=== PATIENT | female | born 1935 | race Caucasian/White ===

== ENCOUNTER 2018-12-04 12:32 | Emergency (ER) | payer OTHER ==
--- OUTSIDE RECORDS SUMMARY | 2018-12-04 12:35 | XMS REPORT ---
:1935 [facility] Address [address] [place] [address] Care Team Providers Name Role Phone Unavailable Unavailable Unavailable Problems This patient has no known problems. Allergies, Adverse Reactions, Alerts This patient has no known allergies or adverse reactions. Medications This patient has no known medications.
--- OUTSIDE RECORDS SUMMARY | 2018-12-04 12:35 | XMS REPORT | Clinical Summary ---
:1935 Author Organization [facility] Address [address] [place] [address] Care Team Providers Name Role Phone Yanci Pagan MD Primary Care Provider Allergies Active Allergy Reactions Severity Noted Date Comments Codeine 08/21/2016 Other 08/21/2016 Contrast Dye Penicillins 08/21/2016 Medications Medication Sig Dispensed Refills Start Date End Date Status cyanocobalamin 1,000 Inject 1,000 mcg 0 Active mcg/mL injection into the shoulder, thigh, or buttocks once. pregabalin (LYRICA) 50 Take 50 mg by 0 Active MG capsule mouth 2 (two) times a day. metFORMIN (GLUCOPHAGE) Take 500 mg by 0 Active 500 mg tablet mouth 2 (two) times a day with meals. magnesium oxide Take 400 mg by 0 Active (MAG-OX) 400 mg tablet mouth 2 (two) times a day. potassium chloride Take 10 mEq by 0 Active (K-DUR,KLOR-CON) 10 MEQ mouth daily. CR tablet memantine 28 mg Take 28 capsules 0 Active capsule,sprinkle,ER by mouth daily. 24hr atorvastatin (LIPITOR) Take 20 mg by 0 Active 20 MG tablet mouth daily. furosemide (LASIX) 40 Take 40 mg by 0 Active mg tablet mouth daily. glipiZIDE (GLUCOTROL) Take 10 mg by 0 Active 10 MG tablet mouth 2 (two) times a day before meals. levothyroxine Take 112 mcg by 0 Active (SYNTHROID, LEVOXYL) mouth every 112 mcg tablet morning. oxyCODone (ROXICODONE) Take 15 mg by 0 Active 15 MG immediate release mouth every 4 tablet (four) hours as needed for moderate pain. pantoprazole (PROTONIX) Take 40 mg by 0 Active 40 MG EC tablet mouth daily. raloxifene (EVISTA) 60 Take 60 mg by 0 Active mg tablet mouth daily. ramipril (ALTACE) 10 MG Take 10 mg by 0 Active capsule mouth daily. PHYTOSTEROL/OM-3/DHA/EP Take by mouth. 0 Active A/FISH (VAYAROL ORAL) venlafaxine XR Take 150 mg by 0 Active (EFFEXOR-XR) 150 MG 24 mouth daily. hr capsule cyanocobalamin, vitamin Place 2,500 mcg 0 Active B-12, 5,000 mcg tablet, under the tongue sublingual daily. cetirizine (ZyrTEC) 10 Take 10 mg by 0 Active MG tablet mouth daily. donepezil (ARICEPT) 23 Take 1 tablet (23 90 tablet 3 11/25/2016 Active mg tablet mg total) by mouth daily. Active Problems Problem Noted Date Alzheimer disease 08/21/2016 Overview: Memory problems Encounters Date Type Specialty Care Team Description 02/11/2018 Refill Neurology Tom Montenegro Jr., MD 02/08/2018 Refill Neurology Tom Montenegro Jr., MD after 12/03/2017 Family History Relation Name Status Comments Father Mother Social History Tobacco Use Types Packs/Day Years Used Date Never Smoker Tobacco Cessation: Counseling Given: No Alcohol Use Drinks/Week oz/Week Comments No Sex Assigned at Date Recorded Not on file Job Start Date Occupation Industry Not on file Not on file Not on file Travel History Travel Start Travel End No recent travel history available. Last Filed Vital Signs Not on file Plan of Treatment Health Maintenance Due Date Last Done Comments SHINGLES VACCINES (1 of 2) 1983 PNEUMOCOCCAL POLYSACCHARIDE VACCINE AGE 65 AND OVER 1998 PNEUMOCOCCAL-13 1998 INFLUENZA VACCINE 06/09/2018 Results Not on fileafter 12/03/2017 Insurance Payer Benefit Plan / Group Subscriber ID Type Phone Address [employer] MEDICARE HU[employer]NA MEDICARE PPO/PFFS/[facility] xxxxxxxxx PPO Advance Directives Patient has advance care planning documents on file. For more information, please contact:Umang Diaz[address] [place] [address]
[2018-12-04 13:01] LABS: Absolute Lymphocytes (CBC) 1.6 K/uL (0.7-4.9); Absolute Monocytes 0.9 K/uL (0.1-1.3); Absolute Neutrophil 4.5 K/uL (1.8-8.0); Eosinophils % 7.3 % (0-4.4); Hematocrit 37.2 % (36.0-45.0); Lymphocytes % 20.5 % (15.3-44.8); MPV 9.4 fL (7.6-11.3); Monocytes % 11.2 % (3.3-12.3); RBC Red Blood Cell Count 4.55 M/uL (3.86-4.86)
[2018-12-04 13:20] LABS: ALT/SGPT 14 U/L (12-78); AST/SGOT 13 U/L (15-37); Alkaline Phosphatase 62 U/L (45-117); BUN Blood Urea Nitrogen 18 mg/dL (7-18); Bicarbonate 30 mmol/L (21-32); Bilirubin Direct < 0.1 mg/dL (0-0.2); Bilirubin Total 0.3 mg/dL (0.2-1.0); Glucose Level 107 mg/dL (74-106); NT PRO-BNP 201 pg/mL (<450); Potassium 3.8 mmol/L (3.5-5.1); Protein, Total 6.3 g/dL (6.4-8.2); Sodium Level 145 mmol/L (136-145); Troponin (Emerg Dept Use Only) < 0.02 ng/mL (0.0-0.045)
--- NOTE | 2018-12-04 15:35 | EDPHYS ---
Physician Documentation [facility] Name: Sandra Donahue Age: 83 yrs Sex: Female : 1935 Arrival Date: 12/04/2018 Time: 12:35 Bed 4 Private MD: ED Physician Mumtaz Galeas HPI: 12/04 15:04 This 83 yrs old Female presents to ER via EMS with complaints of Chest Pain. rn 15:04 The patient or guardian reports chest pain that is located primarily in the anterior rn chest wall, left. Onset: at an unknown time. The pain does not radiate. Duration: The patient or guardian reports a single episode, that is now resolved. Severity of pain:. The patient has not experienced similar symptoms in the past. EMS reports had chest pain, left sided, non-radiating, worse when daughter touched chest. Patient currently denies chest pain/sob, is asymptomatic at this moment. . Historical: - Allergies: 12:50 Ciprofloxacin; aj1 12:50 Codeine; aj1 12:50 Enalapril; aj1 12:50 Iodine; aj1 12:50 PENICILLINS; aj1 - Home Meds: 12:50 donepezil 23 mg Oral tab 1 tab twice a day [Active]; Lyrica 50mg Oral 2 times per day aj1 [Active]; metformin 500 mg Oral tab 1 tab 2 times per day [Active]; Namenda XR 28 mg Oral CSpX 1 cap once daily [Active]; Vitamin D3 2,000 unit Oral cap daily [Active]; vitamin E 2000 units Oral cap once daily [Active]; atorvastatin 20 mg Oral tab 1 tab once daily [Active]; vitamin Z38-ktkzy acid Oral once daily [Active]; glipizide 5 mg oral tab 1 tab once daily [Active]; Januvia 100 mg oral tab 1 tab once daily [Active]; levothyroxine 112 mcg tab 1 tab once daily [Active]; oxybutynin chloride 15 mg Oral tr24 1 tab once daily [Active]; pantoprazole 40 mg Oral TbEC 1 tab once daily [Active]; Probiotic 15 billion cell Oral cpSP daily [Active]; raloxifene 60 mg Oral tab 1 tab once daily [Active]; venlafaxine 150 mg Oral cp24 1 cap once daily [Active]; Zyrtec 10 mg Oral tab 1 tab once daily [Active]; - PMHx: 12:50 Alzheimers; Anxiety; Dementia; Depression; Diabetes - NIDDM; Heart valve disease; aj1 Hypertension; Hypothyroidism; Irregular heart rate; Left torn rotator cuff; osteoarthritis; Osteoporosis; - Immunization history:: Flu vaccine is up to date. - Social history:: Smoking status: Patient/guardian denies using tobacco. - Ebola Screening: : Patient denies travel to an Ebola-affected area in the 21 days before illness onset. - Family history:: not pertinent. - Hospitalizations: : No recent hospitalization is reported. ROS: 15:04 Constitutional: Negative for fever, chills, and weight loss, Eyes: Negative for injury, rn pain, redness, and discharge, Neck: Negative for injury, pain, and swelling, Cardiovascular: Negative for chest pain, palpitations, and edema, Respiratory: Negative for shortness of breath, cough, wheezing, and pleuritic chest pain, Abdomen/GI: Negative for abdominal pain, nausea, vomiting, diarrhea, and constipation, MS/Extremity: Negative for injury and deformity, Skin: Negative for injury, rash, and discoloration, Neuro: Negative for headache, weakness, numbness, tingling, and seizure. Exam: 15:04 Constitutional: This is a well developed, well nourished patient who is awake, alert, rn and in no acute distress. Head/Face: Normocephalic, atraumatic. Cardiovascular: Regular rate and rhythm. No pulse deficits. Respiratory: Lungs have equal breath sounds bilaterally, clear to auscultation Abdomen/GI: Soft, non-tender Skin: Warm, dry MS/ Extremity: Pulses equal, no cyanosis. Neurovascular intact. Full, normal range of motion. Equal circumference. Neuro: Awake and alert, GCS 15, oriented to person, place, time, and situation. Cranial nerves II-XII grossly intact. Motor strength 5/5 in all extremities. Sensory grossly intact. Vital Signs: 12:50 BP 135 / 64; Pulse 59; Resp 16; Temp 97.5; Pulse Ox 97% on R/A; Weight 75.3 kg (R); aj1 Height 5 ft. 3 in. (160.02 cm) (R); Pain 0/10; 13:58 BP 123 / 68; Pulse 61; Resp 14; Pulse Ox 100% on R/A; aj1 15:05 BP 126 / 82; Pulse 97; Resp 18; Pulse Ox 97% on R/A; [facility] 16:09 BP 127 / 72; Pulse 65; Resp 18; Pulse Ox 99% on R/A; [facility] 12:50 Body Mass Index 29.41 (75.30 kg, 160.02 cm) [facility] MDM: 12:35 Patient medically screened. rn 15:32 Differential diagnosis: chest wall pain, gastroesophageal reflux disease (GERD), rn pleurisy, pneumonia, pneumothorax, early zoster, MSK pain. Data reviewed: vital signs, nurses notes, lab test result(s), EKG, radiologic studies, plain films, and as a result, I will discharge patient. Counseling: I had a detailed discussion with the patient and/or guardian regarding: the historical points, exam findings, and any diagnostic results supporting the discharge/admit diagnosis, lab results, radiology results, the need for outpatient follow up, to return to the emergency department if symptoms worsen or persist or if there are any questions or concerns that arise at home. Response to treatment: the patient's condition has returned to base line, the patient is now symptom free, and as a result, I will discharge patient. Special discussion: I discussed with the patient/guardian in detail that at this point there is no indication for admission to the hospital. It is understood, however, that if the symptoms persist or worsen the patient needs to return immediately for re-evaluation. 15:35 ED course: Pt still denies any symptoms and does not recall having chest pain/sob. . rn 12/04 12:36 Order name: Basic Metabolic Panel rn 12/04 12:36 Order name: CBC with Diff; Complete Time: 14:45 rn 12/04 12:36 Order name: LFT's; Complete Time: 14:45 rn 12/04 12:36 Order name: NT PRO-BNP; Complete Time: 14:45 rn 12/04 12:36 Order name: Troponin (emerg Dept Use Only); Complete Time: 14:45 rn 12/04 12:36 Order name: Basic Metabolic Panel; Complete Time: 14:45 EDMS 12/04 12:36 Order name: XRAY Chest (1 view); Complete Time: 15:47 rn 12/04 12:36 Order name: EKG; Complete Time: 12:37 rn 12/04 12:36 Order name: Cardiac monitoring; Complete Time: 12:59 rn 12/04 12:36 Order name: EKG - Nurse/Tech; Complete Time: 12:39 rn 12/04 12:36 Order name: IV Saline Lock; Complete Time: 12:59 rn 12/04 12:36 Order name: Labs collected and sent; Complete Time: 12:51 rn 12/04 12:36 Order name: O2 Per Protocol; Complete Time: 12:59 rn 12/04 12:36 Order name: O2 Sat Monitoring; Complete Time: 12:59 rn Administered Medications: No medications were administered Disposition: 12/04/18 15:34 Discharged to Home. Impression: Chest pain, unspecified, Dyspnea, unspecified. - Condition is Stable. - Discharge Instructions: Nonspecific Chest Pain. - Medication Reconciliation Form, Thank You Letter, Antibiotic Education, Prescription Opioid Use form. - Follow up: Private Physician; When: As needed; Reason: Recheck today's complaints, Re-evaluation by your physician. - Problem is new. - Symptoms have improved. Signatures: Dispatcher [employer] EDKiki Crowley RN RN aj1 Mumtaz Galeas MD MD financial intern: (The following items were deleted from the chart) 16:14 15:34 12/04/2018 15:34 Discharged to Home. Impression: Chest pain, unspecified; aj1 Dyspnea, unspecified. Condition is Stable. Forms are Medication Reconciliation Form, Thank You Letter, Antibiotic Education, Prescription Opioid Use. Follow up: Private Physician; When: As needed; Reason: Recheck today's complaints, Re-evaluation by your physician. Problem is new. Symptoms have improved. rn
--- NOTE | 2018-12-04 15:35 | ER ---
Nurse's Notes [facility] Name: Sandra Donahue Age: 83 yrs Sex: Female : 1935 Arrival Date: 12/04/2018 Time: 12:35 Bed 4 Private MD: Diagnosis: Chest pain, unspecified;Dyspnea, unspecified Presentation: 12/04 12:43 Presenting complaint: EMS states: She woke up at about 11:30 today and told her aj1 granddaughter that she was feeling pressure on the left side of her chest that radiates to the LUQ and left arm. Patient is confused, oriented to person only, denies pain at this time. Patient was given 324mg ASA en route, and 20 gauge IV was started to the left AC. Transition of care: patient was not received from another setting of care. Onset of symptoms was December 04, 2018 at 11:30. Risk Assessment: Do you want to hurt yourself or someone else? Patient reports no desire to harm self or others. Initial Sepsis Screen: Does the patient meet any 2 criteria? No. Patient's initial sepsis screen is negative. Does the patient have a suspected source of infection? No. Patient's initial sepsis screen is negative. Care prior to arrival: None. 12:43 Method Of Arrival: EMS: [facility] aj1 12:43 Acuity: AYAKA 3 aj1 Triage Assessment: 12:50 General: Appears in no apparent distress. comfortable, Behavior is calm, cooperative, aj1 appropriate for age. Pain: Denies pain. Cardiovascular: Heart tones S1 S2 present Patient's skin is warm and dry. Historical: - Allergies: 12:50 Ciprofloxacin; aj1 12:50 Codeine; aj1 12:50 Enalapril; aj1 12:50 Iodine; aj1 12:50 PENICILLINS; aj1 - Home Meds: 12:50 donepezil 23 mg Oral tab 1 tab twice a day [Active]; Lyrica 50mg Oral 2 times per day aj1 [Active]; metformin 500 mg Oral tab 1 tab 2 times per day [Active]; Namenda XR 28 mg Oral CSpX 1 cap once daily [Active]; Vitamin D3 2,000 unit Oral cap daily [Active]; vitamin E 2000 units Oral cap once daily [Active]; atorvastatin 20 mg Oral tab 1 tab once daily [Active]; vitamin X56-trhrr acid Oral once daily [Active]; glipizide 5 mg oral tab 1 tab once daily [Active]; Januvia 100 mg oral tab 1 tab once daily [Active]; levothyroxine 112 mcg tab 1 tab once daily [Active]; oxybutynin chloride 15 mg Oral tr24 1 tab once daily [Active]; pantoprazole 40 mg Oral TbEC 1 tab once daily [Active]; Probiotic 15 billion cell Oral cpSP daily [Active]; raloxifene 60 mg Oral tab 1 tab once daily [Active]; venlafaxine 150 mg Oral cp24 1 cap once daily [Active]; Zyrtec 10 mg Oral tab 1 tab once daily [Active]; - PMHx: 12:50 Alzheimers; Anxiety; Dementia; Depression; Diabetes - NIDDM; Heart valve disease; aj1 Hypertension; Hypothyroidism; Irregular heart rate; Left torn rotator cuff; osteoarthritis; Osteoporosis; - Immunization history:: Flu vaccine is up to date. - Social history:: Smoking status: Patient/guardian denies using tobacco. - Ebola Screening: : Patient denies travel to an Ebola-affected area in the 21 days before illness onset. - Family history:: not pertinent. - Hospitalizations: : No recent hospitalization is reported. Screenin:55 Abuse screen: Denies threats or abuse. Denies injuries from another. Nutritional aj1 screening: No deficits noted. Tuberculosis screening: No symptoms or risk factors identified. 16:10 Fall Risk No fall in past 12 months (0 pts). Secondary diagnosis (15 points) dementia, aj1 No IV (0 pts). Ambulatory Aid- None/Bed Rest/Nurse Assist (0 pts). Gait- Impaired (20 pts.). Mental Status- Overestimates/Forgets Limitations (15 pts.). Total Argueta Fall Scale indicates High Risk Score (45 or more points). As available patient and family educated on Fall Prevention Program and Strategies. Assessment: 12:55 General: Appears in no apparent distress. comfortable, Behavior is calm, cooperative, aj1 appropriate for age. Pain: Denies pain. Neuro: Level of Consciousness is awake, alert, obeys commands. Cardiovascular: Denies chest pain, palpitations, shortness of breath, vomiting, Patient's granddaughter states that the patient was complaining of chest pain and pressure at home Heart tones S1 S2 Patient's skin is warm and dry. Respiratory: Airway is patent Respiratory effort is even, unlabored, Respiratory pattern is regular, symmetrical. GI: No signs and/or symptoms were reported involving the gastrointestinal system. : No signs and/or symptoms were reported regarding the genitourinary system. EENT: No signs and/or symptoms were reported regarding the EENT system. Derm: No signs and/or symptoms reported regarding the dermatologic system. Skin is pink, warm \T\ dry. normal. Musculoskeletal: No signs and/or symptoms reported regarding the musculoskeletal system. Circulation, motion, and sensation intact. 13:58 Reassessment: Patient appears in no apparent distress at this time. No changes from [facility] previously documented assessment. Patient and/or family updated on plan of care and expected duration. Pain level reassessed. Patient is alert, oriented x 3, equal unlabored respirations, skin warm/dry/pink. 15:05 Reassessment: Patient appears in no apparent distress at this time. No changes from aj1 previously documented assessment. Patient and/or family updated on plan of care and expected duration. Pain level reassessed. Patient is alert, oriented x 3, equal unlabored respirations, skin warm/dry/pink. 16:09 Reassessment: Patient appears in no apparent distress at this time. No changes from [facility] previously documented assessment. Patient and/or family updated on plan of care and expected duration. Pain level reassessed. Patient is alert, oriented x 3, equal unlabored respirations, skin warm/dry/pink. Vital Signs: 12:50 BP 135 / 64; Pulse 59; Resp 16; Temp 97.5; Pulse Ox 97% on R/A; Weight 75.3 kg (R); aj1 Height 5 ft. 3 in. (160.02 cm) (R); Pain 0/10; 13:58 BP 123 / 68; Pulse 61; Resp 14; Pulse Ox 100% on R/A; aj1 15:05 BP 126 / 82; Pulse 97; Resp 18; Pulse Ox 97% on R/A; aj1 16:09 BP 127 / 72; Pulse 65; Resp 18; Pulse Ox 99% on R/A; aj1 12:50 Body Mass Index 29.41 (75.30 kg, 160.02 cm) [facility] ED Course: 12:35 Patient arrived in ED. rn 12:35 Mumtaz Galeas MD is Attending Physician. rn 12:39 EKG done, by ED staff, reviewed by Mumtaz Galeas MD. em1 12:42 Kiki Crisostomo RN is Primary Nurse. aj1 12:45 Triage completed. aj1 12:50 Arm band placed on. aj1 12:51 Initial lab(s) drawn, by me, sent to lab. em1 12:55 No provider procedures requiring assistance completed. Maintain EMS IV. Dressing aj1 intact. Good blood return noted. Site clean \T\ dry. Gauge \T\ site: 20 gauge to left AC. Patient maintains SpO2 saturation greater than 95% on room air. 12:55 Patient has correct armband on for positive identification. Bed in low position. Call aj1 light in reach. Side rails up X 1. athletic monitor on. Pulse ox on. NIBP on. 13:14 X-ray completed. Portable x-ray completed in exam room. Patient tolerated procedure sg4 well. 13:15 XRAY Chest (1 view) In Process Unspecified. EDMS 16:10 IV discontinued, intact, bleeding controlled, No redness/swelling at site. Pressure aj1 dressing applied. Administered Medications: No medications were administered Outcome: 15:34 Discharge ordered by . rn 16:14 Discharged to home via wheelchair, with family. aj1 16:14 Condition: good 16:14 Discharge instructions given to family, Instructed on discharge instructions, follow up and referral plans. Demonstrated understanding of instructions, follow-up care. 16:14 Patient left the ED. aj1 Signatures: Dispatcher [employer] EDMS Kiki Crisostomo, ANAHI RN Mumtaz Jaffe MD MD rn Martinez, Eric em1 Sandra Bone sg4
--- NOTE | 2018-12-04 15:39 | RAD REPORT ---
EXAM DESCRIPTION: RAD - Chest Single View - 12/04/2018 1:15 pm CLINICAL HISTORY: Chest pain COMPARISON: January 2018 TECHNIQUE: AP portable chest image was obtained 1312 hours . FINDINGS: Interstitial markings are prominent but not clearly different. No focal mass, consolidatio n or failure. Heart and vasculature are normal. No measurable pleural effusion and no pneumothorax. N o acute bony abnormality seen. No acute aortic findings suspected. IMPRESSION: Chronic interstitial lung disease. No acute findings seen.
--- NOTE | 2018-12-05 07:07 | EKG ---
Test Date: 2018-12-04 Test Time: 12:33:33 Board Certified Orthodontist: GRISEL MEASUREMENT RESULTS: Intervals: Rate: 57 NJ: 184 QRSD: 124 QT: 454 QTc: 441 [place]: P: 51 NJ: 184 QRS: -64 T: 50 INTERPRETIVE STATEMENTS: Sinus bradycardia with sinus arrhythmia Right bundle branch block Left anterior fascicular block Bifascicular block Minimal voltage criteria for LVH, may be normal variant Possible Lateral infarct, age undetermined Abnormal ECG Compared to ECG 01/26/2018 21:10:42 Left ventricular hypertrophy now present Myocardial infarct finding now present Sinus rhythm no longer present Bifascicular block still present Electronically Signed On 12-05-18 07:04:59 CLOTHES MODEL by Jack Luz
== END 2018-12-04 16:14 | disposition home or self-care (01) ==
LOC: ER 12:32
DX: R07.9 Chest pain, unspecified (principal); R06.00 Dyspnea, unspecified; I10 Essential (primary) hypertension; E11.9 Type 2 diabetes mellitus without complications; E03.9 Hypothyroidism, unspecified; G30.9 Alzheimer's disease, unspecified; F02.80 Dementia in other diseases classified elsewhere, unspecified severity, without behavioral disturbance, psychotic disturbance, mood disturbance, and anxiety; F32.9 Major depressive disorder, single episode, unspecified; Z88.0 Allergy status to penicillin; Z88.1 Allergy status to other antibiotic agents; Z88.5 Allergy status to narcotic agent; Z91.048 Other nonmedicinal substance allergy status
CPT/HCPCS: 36415; 71045; 80048; 80076; 83880; 84484; 85025; 93005; 99285

== ENCOUNTER 2019-09-24 18:33 | Emergency (ER) | payer OTHER ==
--- OUTSIDE RECORDS SUMMARY | 2019-09-24 18:35 | XMS REPORT ---
:1935 [facility] Address [address] [place] [address] Care Team Providers Name Role Phone Unavailable Unavailable Unavailable Problems This patient has no known problems. Allergies, Adverse Reactions, Alerts This patient has no known allergies or adverse reactions. Medications This patient has no known medications.
--- NOTE | 2019-09-24 19:26 | RAD REPORT ---
EXAM DESCRIPTION: CT - [id number] - 09/24/2019 7:09 pm CLINICAL HISTORY: Trauma, head and neck injury. PAIN COMPARISON: Chest Pa And Lat (2 Views) dated 09/01/2019; Chest Single View dated 05/16/2019CT HEAD CSP INE MPR WO CONTRAST dated 09/17/2015 TECHNIQUE: Axial 5 mm thick images of the head were obtained. Axial 2 mm thick images of the cervical spine were obtained with sagittal and coronal reconstruction images generated and reviewed. All CT scans are performed using dose optimization technique as appropriate and may include automated exposure control or mA/KV adjustment according to patient size. FINDINGS: CT HEAD WITHOUT CONTRAST: No acute hemorrhage, hydrocephalus or extra-axial collection is identified.Moderate generalized brain atrophy is present with moderate periventricular and deep white matter chronic microvascular ischemi c changes.No areas of brain edema or midline shift. The paranasal sinuses and mastoids are clear.The calvarium is intact. Right frontal scalp hematoma. CT CERVICAL SPINE WITHOUT CONTRAST: No fracture or subluxation.Moderate mid and lower cervical degenerative changes.No prevertebral soft tissues swelling is identified. IMPRESSION: No acute intracranial or cervical spine findings. Moderate mid and lower cervical degenerative changes.
--- NOTE | 2019-09-24 19:33 | ER ---
Nurse's Notes [facility] Name: Sandra Donahue Age: 84 yrs Sex: Female : 1935 Arrival Date: 09/24/2019 Time: 18:37 Bed 14 Private MD: Diagnosis: Fall (on) (from) other stairs and steps;Superficial injury of head;Dementia in other diseases classified elsewhere Presentation: 09/24 18:37 Presenting complaint: EMS states: patient fell out from a foot high bed around 4 or 5 mg2 pm today. sustained bruising in the left side of the forehead and laceration in the left elbow. BGL 106. Transition of care: patient was received from another setting of care (long-term care facility), same day surgery center. Onset of symptoms was September 24, 2019 at 16:00. Risk Assessment: Do you want to hurt yourself or someone else? Patient reports no desire to harm self or others. Initial Sepsis Screen: Does the patient meet any 2 criteria? No. Patient's initial sepsis screen is negative. Does the patient have a suspected source of infection? No. Patient's initial sepsis screen is negative. Care prior to arrival: None. 18:37 Method Of Arrival: EMS: [facility] mg2 18:37 Acuity: AYAKA 3 mg2 Historical: - Allergies: 18:47 Ciprofloxacin; mg2 18:47 Codeine; mg2 18:47 Enalapril; mg2 18:47 Iodine; mg2 18:47 PENICILLINS; mg2 - Home Meds: 18:47 atorvastatin 20 mg Oral tab 1 tab once daily [Active]; mg2 - PMHx: 18:47 Alzheimers; Anxiety; Dementia; Depression; Diabetes - NIDDM; Heart valve disease; mg2 Hypertension; Hypothyroidism; Irregular heart rate; Left torn rotator cuff; osteoarthritis; Osteoporosis; - Immunization history:: Flu vaccine status is unknown. - Social history:: Smoking status: unknown. - Ebola Screening: : No symptoms or risks identified at this time. - Family history:: not pertinent. Screenin:58 Abuse screen: Denies threats or abuse. Denies injuries from another. Nutritional mg2 screening: No deficits noted. Tuberculosis screening: Never had TB. Fall Risk Fall in past 12 months (25 points). Ambulatory Aid- None/Bed Rest/Nurse Assist (0 pts). Gait- Weak (10 pts.). Mental Status- Overestimates/Forgets Limitations (15 pts.). Assessment: 19:55 General: Appears in no apparent distress. comfortable, Behavior is calm, cooperative. mg2 Pain: Denies pain. Neuro: Level of Consciousness is awake, alert, Oriented to person. Cardiovascular: Capillary refill < 3 seconds. Respiratory: Airway is patent Respiratory effort is even, unlabored, Respiratory pattern is regular, symmetrical. GI: No signs and/or symptoms were reported involving the gastrointestinal system. : No signs and/or symptoms were reported regarding the genitourinary system. EENT: No signs and/or symptoms were reported regarding the EENT system. Derm: Bruising that is dark purple, yellow, on forehead. Musculoskeletal: Circulation, motion, and sensation intact. Capillary refill < 3 seconds, stages of multiple bruising in the forehead due to fall. 20:03 Reassessment: called JOHNATHON Alston of [facility] and said she will call [facility] for the transportation and will call me back for an update. 20:44 Reassessment: granddaughter contacted and she said she will call one of her family [facility] member to come and greens picker the patient going back to [place]. JOHNATHON Alston said she called MAND[facility] and [employer] but they will be available tomorrow morning to greens picker the patient. 21:07 Reassessment: Patient appears in no apparent distress at this time. patient sleeping on [facility] bed. 21:42 Reassessment: JOHNATHON Alston was contacted that EMS [facility] [place] [facility] is coming to pick the [facility] patient up tonight and bring her back to [facility]. 21:47 Reassessment: Martell Donahue [phone] notified that pt was being transferred back to [place] via [employer] [facility]. 22:31 Reassessment: patient picked up by [facility] by wheelchair. patient in good [facility] condition. Vital Signs: 18:43 BP 107 / 63; Pulse 95; Resp 18; Temp 98.7; Pulse Ox 100% on R/A; mg2 19:59 Pulse 90; Resp 18; Pulse Ox 100% on R/A; mg2 20:02 BP 102 / 57; mg2 21:08 BP 117 / 67; Pulse 89; Resp 18; Pulse Ox 100% ; mg2 ED Course: 18:37 Patient arrived in ED. mg2 18:37 Shane Martinez, RN is Primary Nurse. mg2 18:37 Vasyl Le MD is Attending Physician. [facility] 18:43 Triage completed. mg2 19:08 CT completed. Patient tolerated procedure well. Patient moved back from CT. bq 19:11 CT Head C Spine In Process Unspecified. EDMS 20:00 Arm band placed on. mg2 20:01 No provider procedures requiring assistance completed. Patient did not have IV access mg2 during this emergency room visit. 20:01 Patient has correct armband on for positive identification. Pulse ox on. NIBP on. Door mg2 closed. Warm blanket given. 20:02 Wound care: to skin tear located on left elbow was cleaned with Betadine, dressed with mg2 4X4s, steri-strips, Patient tolerated well. Administered Medications: No medications were administered Outcome: 19:32 Discharge ordered by . kb 22:32 Discharged to intermediate. Report called to JOHNATHON Alston mg2 22:32 Condition: stable 22:32 Discharge instructions given to family, intermediate, Instructed on discharge instructions, follow up and referral plans. Demonstrated understanding of instructions, follow-up care, wound care. 22:33 Patient left the ED. mg2 Signatures: Dispatcher [employer] EDSD Soraida Diaz, PM TECHNICIAN-C PM TECHNICIAN-Ckb Vasyl Le MD MD cha Quilty, Betty bq Chretien, Felicia, RN RN Shane Martinez, ANAHI RN mg2 Corrections: (The following items were deleted from the chart) 20:53 20:51 Discharged to home ambulatory, mg2 mg2 20:53 20:51 Condition: stable mg2 mg2 20:53 20:51 Discharge instructions given to patient, Instructed on discharge instructions, mg2 follow up and referral plans. medication usage, Demonstrated understanding of instructions, follow-up care, Prescriptions given X 2, mg2 21:08 20:50 Pulse 88bpm; Resp 18bpm; Pulse Ox 100% RA; Temp 98F; Pain 1/10; mg2 mg2
--- NOTE | 2019-09-24 19:33 | EDPHYS ---
Physician Documentation [facility] Name: Sandra Donahue Age: 84 yrs Sex: Female : 1935 Arrival Date: 09/24/2019 Time: 18:37 Bed 14 Private MD: ED Physician Vasyl Le HPI: 09/24 18:51 This 84 yrs old Female presents to ER via EMS with complaints of fall one [facility] foot out of bed, small skin tear left elbow. 18:51 nh, no obvious head trauma. Onset: The symptoms/episode began/occurred just prior to [facility] arrival. Severity of symptoms: At their worst the symptoms were mild in the emergency department the symptoms are unchanged. The patient has not experienced similar symptoms in the past. Historical: - Allergies: 18:47 Ciprofloxacin; mg2 18:47 Codeine; mg2 18:47 Enalapril; mg2 18:47 Iodine; mg2 18:47 PENICILLINS; mg2 - Home Meds: 18:47 atorvastatin 20 mg Oral tab 1 tab once daily [Active]; mg2 - PMHx: 18:47 Alzheimers; Anxiety; Dementia; Depression; Diabetes - NIDDM; Heart valve disease; mg2 Hypertension; Hypothyroidism; Irregular heart rate; Left torn rotator cuff; osteoarthritis; Osteoporosis; - Immunization history:: Flu vaccine status is unknown. - Social history:: Smoking status: unknown. - Ebola Screening: : No symptoms or risks identified at this time. - Family history:: not pertinent. ROS: 18:51 Constitutional: Negative for fever, chills, and weight loss, Eyes: Negative for injury, michael pain, redness, and discharge, ENT: Negative for injury, pain, and discharge, Neck: Negative for injury, pain, and swelling, Cardiovascular: Negative for chest pain, palpitations, and edema, Respiratory: Negative for shortness of breath, cough, wheezing, and pleuritic chest pain, Abdomen/GI: Negative for abdominal pain, nausea, vomiting, diarrhea, and constipation, Back: Negative for injury and pain, : Negative for injury, bleeding, discharge, and swelling, MS/Extremity: Negative for injury and deformity, Skin: Negative for injury, rash, and discoloration, Psych: Negative for depression, anxiety, suicide ideation, homicidal ideation, and hallucinations, Allergy/Immunology: Negative for hives, rash, and allergies, Endocrine: Negative for neck swelling, polydipsia, polyuria, polyphagia, and marked weight changes, Hematologic/Lymphatic: Negative for swollen nodes, abnormal bleeding, and unusual bruising. 18:51 Neuro: Positive for dementia. Exam: 18:52 Constitutional: This is a well developed, well nourished patient who is awake, alert, michael and in no acute distress. Eyes: Pupils equal round and reactive to light, extra-ocular motions intact. Lids and lashes normal. Conjunctiva and sclera are non-icteric and not injected. Cornea within normal limits. Periorbital areas with no swelling, redness, or edema. ENT: Nares patent. No nasal discharge, no septal abnormalities noted. Tympanic membranes are normal and external auditory canals are clear. Oropharynx with no redness, swelling, or masses, exudates, or evidence of obstruction, uvula midline. Mucous membranes moist. Neck: Trachea midline, no thyromegaly or masses palpated, and no cervical lymphadenopathy. Supple, full range of motion without nuchal rigidity, or vertebral point tenderness. No Meningismus. Chest/axilla: Normal chest wall appearance and motion. Nontender with no deformity. No lesions are appreciated. Cardiovascular: Regular rate and rhythm with a normal S1 and S2. No gallops, murmurs, or rubs. Normal PMI, no JVD. No pulse deficits. Respiratory: Lungs have equal breath sounds bilaterally, clear to auscultation and percussion. No rales, rhonchi or wheezes noted. No increased work of breathing, no retractions or nasal flaring. Abdomen/GI: Soft, non-tender, with normal bowel sounds. No distension or tympany. No guarding or rebound. No evidence of tenderness throughout. Back: No spinal tenderness. No costovertebral tenderness. Full range of motion. MS/ Extremity: Pulses equal, no cyanosis. Neurovascular intact. Full, normal range of motion. Neuro: Awake and alert, GCS 15, oriented to person, place, time, and situation. Cranial nerves II-XII grossly intact. Motor strength 5/5 in all extremities. Sensory grossly intact. Cerebellar exam normal. Normal gait. Psych: Awake, alert, with orientation to person, place and time. Behavior, mood, and affect are within normal limits. 18:52 Head/face: Noted is old bruising head, bitemporal. 18:52 Musculoskeletal/extremity: Extremities: grossly normal except: noted in the left elbow: michael laceration. Vital Signs: 18:43 BP 107 / 63; Pulse 95; Resp 18; Temp 98.7; Pulse Ox 100% on R/A; mg2 19:59 Pulse 90; Resp 18; Pulse Ox 100% on R/A; mg2 20:02 BP 102 / 57; mg2 21:08 BP 117 / 67; Pulse 89; Resp 18; Pulse Ox 100% ; mg2 MDM: 18:37 Patient medically screened. [facility] 18:52 Data reviewed: vital signs, nurses notes, radiologic studies, CT scan. [facility] 09/24 18:49 Order name: CT Head C Spine; Complete Time: 19:32 [facility] 09/24 18:50 Order name: Wound Care; Complete Time: 18:56 [facility] Administered Medications: No medications were administered Disposition: 09/24/19 19:32 Discharged to Home. Impression: Fall (on) (from) other stairs and steps, Superficial injury of head, Dementia in other diseases classified elsewhere. - Condition is Stable. - Discharge Instructions: Head Injury, Adult, Laceration Care, Adult, Skin Tear Care, Laceration Care, Adult, [id number], Skin Tear Care, [id number], Head Injury, Adult, [id number]. - Medication Reconciliation Form, Thank You Letter, Antibiotic Education, Prescription Opioid Use, SBAR form form. - Follow up: Private Physician; When: 2 - 3 days; Reason: Recheck today's complaints, Continuance of care, Re-evaluation by your physician. - Problem is new. - Symptoms have improved. Signatures: Dispatcher [employer] EDNM Soraida Diaz, AVIVA-C COMMUNICATIONS SUPERINTENDENT-Vasyl Barreto MD MD cha Gardose, Michele, RN RN mg2 Corrections: (The following items were deleted from the chart) 22:33 19:32 09/24/2019 19:32 Discharged to Home. Impression: Fall (on) (from) other stairs mg2 and steps; Superficial injury of head; Dementia in other diseases classified elsewhere. Condition is Stable. Discharge Instructions: Head Injury, Adult, Laceration Care, Adult, Skin Tear Care, Laceration Care, Adult, [id number], Skin Tear Care, [id number], Head Injury, Adult, [id number]. Forms are Medication Reconciliation Form, Thank You Letter, Antibiotic Education, Prescription Opioid Use. Follow up: Private Physician; When: 2 - 3 days; Reason: Recheck today's complaints, Continuance of care, Re-evaluation by your physician. Problem is new. Symptoms have improved. kb
[2019-09-24 22:55] VITALS: TEMP 98.7; O2SAT 100
[2019-09-24 22:58] VITALS: BP 117/67
== END 2019-09-24 22:33 | disposition home or self-care (01) ==
LOC: ER 18:33
DX: S00.90XA Unspecified superficial injury of unspecified part of head, initial encounter (principal); S51.012A Laceration without foreign body of left elbow, initial encounter; W06.XXXA Fall from bed, initial encounter; Y93.9 Activity, unspecified; Y92.122 Bedroom in nursing home as the place of occurrence of the external cause; Z88.0 Allergy status to penicillin; Z88.1 Allergy status to other antibiotic agents; Z88.5 Allergy status to narcotic agent; Z88.8 Allergy status to other drugs, medicaments and biological substances; Z91.048 Other nonmedicinal substance allergy status; I10 Essential (primary) hypertension; G30.9 Alzheimer's disease, unspecified; F02.80 Dementia in other diseases classified elsewhere, unspecified severity, without behavioral disturbance, psychotic disturbance, mood disturbance, and anxiety
CPT/HCPCS: 70450; 72125; 99284